=== PATIENT | female | born 1965 | race Hispanic/Latino ===

== ENCOUNTER 2018-11-18 08:35 | Emergency (ER) | payer MEDICAID ==
--- NOTE | 2018-11-18 09:10 | Emergency Department Report ---
- General Chief Complaint: Wound/Laceration Stated Complaint: HAND SWOLLEN/FOOT Time Seen by Provider: 11/18/18 08:50 Source: patient Mode of arrival: Wheelchair Limitations: Physical Limitation - History of Present Illness Initial Comments: Mrs. Blackmon is a very pleasant 53-year-old female with history of liver cirrhosis and CVA who presents with her right forearm wound. Yesterday a large box fell and hurt her right arm. Box contact ripped the skin off. She had the paramedics to control the bleeding at her home yesterday. She refused to be transported to the emergency room at that time. Today she is concerned that the wound is still bleeding. However 2 weeks ago, she broke her right foot. She was evaluated by ankle contracting support specialist in [place]. She removed the cast because it was too tight. She has on a walking boot. She wants to know if she needs another cast to replace on her foot. She denies any pain. Denies any fever. Denies any other concerns. -: Sudden, days(s) (1) Extremity Location: Right: Forearm (right forearm) Place: home Context: accidental Associated Symptoms: other (bleeding) Treatments Prior to Arrival: bandage - Related Data Allergies Allergy/AdvReac Type Severity Reaction Status Date / Time No Known Allergies Allergy Unverified 11/18/18 08:40 ED Review of Systems ROS: Stated complaint: HAND SWOLLEN/FOOT Other details as noted in HPI Constitutional: denies: fever, malaise Respiratory: denies: cough, shortness of breath Cardiovascular: denies: chest pain Hematological/Lymphatic: easy bleeding, easy bruising ED Past Medical Hx - Past Medical History Previous Medical History?: Yes Hx CVA: Yes Additional medical history: liver failure - Surgical History Past Surgical History?: No - Social History Smoking Status: Never Smoker Substance Use Type: None ED Physical Exam - General Limitations: No Limitations, Language Barrier, Physical Limitation General appearance: alert, in no apparent distress - Head Head exam: Present: atraumatic, normocephalic - Eye Eye exam: Present: normal appearance. Absent: conjunctival injection - Respiratory Respiratory exam: Absent: respiratory distress - Psychiatric Psychiatric exam: Present: normal affect, normal mood - Skin Skin exam: Present: warm, dry, intact, normal color - Other Other exam information: Tight bandage right forearm causing mild distal right hand swelling Upon removal bandage: Large Band-Aid overlying skin avulsion with oosing of dark blood Right lower extremity long walking boot in place from knee to foot ED Course Vital Signs 11/18/18 08:41 Temperature 98.1 F Pulse Rate 90 Respiratory 18 Rate Blood Pressure 130/72 O2 Sat by Pulse 97 Oximetry ED Medical Decision Making - Medical Decision Making 1. Skin avulsion with bleeding, controlled with nonstick bulky dressing which I applied. I also personally applied Psacual wrap to the right forearm, after placement of the right forearm Pascual wrap, extremity was neurovascularly intact with improvement of swelling. Perceptible alignment achieved. 2. Right foot fracture status post 3 weeks of immobilization, walking boot is acceptable. 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 Critical care attestation.: If time is entered above; I have spent that time in minutes in the direct care of this critically ill patient, excluding procedure time. ED Disposition Clinical Impression: Bleeding from wound, Avulsion of skin of forearm, Foot fracture, right Disposition: DC-01 TO HOME OR SELFCARE Is pt being admited?: No Does the pt Need Aspirin: No Condition: Stable Instructions: Skin Avulsion (ED)
== END 2018-11-18 09:15 | disposition home or self-care (01) ==
LOC: ED 08:35
CPT/HCPCS: 99283

== ENCOUNTER 2018-11-19 07:59 | Emergency (ER) | payer MEDICAID ==
[2018-11-19 08:17] VITALS: BP 108/62
[2018-11-19] MEDS ORDERED: TENIVAC IM ONE (08:42)
[2018-11-19] MEDS ORDERED: BOOSTRIX IM ONE (08:47)
--- NOTE | 2018-11-19 08:47 | Emergency Department Report ---
- General Chief Complaint: Extremity Problem,Nontraumatic Stated Complaint: WOUND CARE Time Seen by Provider: 11/19/18 08:24 Source: patient Mode of arrival: Wheelchair Limitations: No Limitations - History of Present Illness Initial Comments: 53-year-old female with cirrhosis of the liver presents to the ED for bleeding from skin tear sustained 4 days ago. Patient states a box fell onto her arm. Patient was seen here yesterday for same. Had wound dressed and wrapped at that time. Presents today for continued bleeding. -: days(s) (4) Extremity Location: Right: Forearm Place: home Patient Tetanus UTD: No Context: accidental Associated Symptoms: none Treatments Prior to Arrival: bandage - Related Data Previous Rx's Medication Instructions Recorded Last Taken Type cephALEXin [Keflex] 500 mg PO Q12HR #10 cap 11/19/18 Unknown Rx Allergies Allergy/AdvReac Type Severity Reaction Status Date / Time No Known Allergies Allergy Verified 11/19/18 08:44 ED Review of Systems ROS: Stated complaint: WOUND CARE Other details as noted in HPI Comment: All other systems reviewed and negative Constitutional: denies: fever Skin: other (reports skin tear) ED Past Medical Hx - Past Medical History Hx CVA: Yes Additional medical history: liver failure - Social History Smoking Status: Never Smoker Substance Use Type: None - Medications Home Medications: Home Medications Medication Instructions Recorded Confirmed Last Taken Type cephALEXin [Keflex] 500 mg PO Q12HR #10 cap 11/19/18 Unknown Rx ED Physical Exam - General Limitations: No Limitations General appearance: alert, in no apparent distress - Head Head exam: Present: atraumatic, normocephalic - Eye Eye exam: Present: normal appearance - ENT ENT exam: Present: mucous membranes moist - Neck Neck exam: Present: normal inspection - Respiratory Respiratory exam: Present: normal lung sounds bilaterally. Absent: respiratory distress - Cardiovascular Cardiovascular Exam: Present: regular rate, normal rhythm - GI/Abdominal GI/Abdominal exam: Present: soft. Absent: distended - Extremities Exam Extremities exam: Present: full ROM, other (superficial abrasion of skin, approx 3.5 cm in length, located on right forearm, mild oozing of blood present). Absent: tenderness - Neurological Exam Neurological exam: Present: alert, oriented X3 - Psychiatric Psychiatric exam: Present: normal affect, normal mood - Skin Skin exam: Present: warm, dry, normal color, other ED Course Vital Signs 11/19/18 08:12 Temperature 98.7 F Pulse Rate 85 Respiratory 18 Rate Blood Pressure 108/62 O2 Sat by Pulse 98 Oximetry ED Medical Decision Making - Medical Decision Making Due to liver disease and thin skin, pt returns today for bleeding wound. Wound unwrapped, cleaned. Edges of torn skin cut and debrided. Surgicel placed on wound. Wound then wrapped in gauze and Pascual wrap. Pt advised to keep extremity elevated. Critical care attestation.: If time is entered above; I have spent that time in minutes in the direct care of this critically ill patient, excluding procedure time. ED Disposition Clinical Impression: Avulsion of skin of forearm, Bleeding from wound Disposition: DC-01 TO HOME OR SELFCARE Is pt being admited?: No Condition: Stable Instructions: Skin Avulsion (ED) Prescriptions: cephALEXin [Keflex] 500 mg PO Q12HR #10 cap Referrals: PRIMARY CARE, [Primary Care Provider] - 3-5 Days Time of Disposition: 08:55
== END 2018-11-19 09:07 | disposition home or self-care (01) ==
LOC: ED 07:59
DX: S51.831A Puncture wound without foreign body of right forearm, initial encounter (principal); W22.8XXA Striking against or struck by other objects, initial encounter; Y93.89 Activity, other specified; Y92.098 Other place in other non-institutional residence as the place of occurrence of the external cause; Y99.8 Other external cause status
CPT/HCPCS: 90471; 90714; 90715

== ENCOUNTER 2020-10-29 11:19 | Emergency (ER) | payer MEDICAID ==
[2020-10-29 12:05] VITALS: BP 110/63
== END 2020-10-29 14:00 ==
LOC: ED 11:19
DX: R10.2 Pelvic and perineal pain (principal); Z53.21 Procedure and treatment not carried out due to patient leaving prior to being seen by health care provider